=== PATIENT | female | born 1935 | race Two or more races ===

== ENCOUNTER 2018-03-12 12:56 | Outpatient (CLI) | payer OTHER ==
[~2018-03-12 12:56] MED LIST: ACETAZOLAMIDE250 MG; ALDACTONE25 MG; ALDACTONE25 MG PO; Atacand PO; CANDESARTAN CILE8 MG; CATAFLAM50 MG PO; CORTISPORIN EAR10 M1 OT; DILTIAZEM ER120 M1 PO; LANOXIN125 MCG PO; LASIX20 MG; MEDROLPACK PO; OMNIPRED10 ML; ORPH100T PO; ROBITUSSIN COU118 M9; TESSALON PERLE100 M1 PO; TOPROL XL25 M1; TOPROL XL50 M1 PO; XARELTO15 MG; XARELTO15 MG PO; XOPENEX0.63 MG/3 IH
== END 2018-03-12 13:04 | disposition home or self-care (01) ==
LOC: RAD 12:56
DX: M54.5 Low back pain (principal); M54.10 Radiculopathy, site unspecified

== ENCOUNTER 2018-09-18 08:47 | Outpatient (CLI) | payer OTHER | END 2018-09-18 08:55 | disposition home or self-care (01) | LOC: MAMO-SONO 08:47 | DX: Z12.31 Encounter for screening mammogram for malignant neoplasm of breast (principal); Z87.898 Personal history of other specified conditions; N60.11 Diffuse cystic mastopathy of right breast; N60.12 Diffuse cystic mastopathy of left breast; J43.8 Other emphysema ==

== ENCOUNTER 2018-12-17 14:20 | Outpatient (CLI) | payer OTHER | END 2018-12-17 14:29 | disposition home or self-care (01) | LOC: RAD 14:20 | DX: R05 Cough (principal) ==

== ENCOUNTER 2019-04-29 08:03 | Outpatient (CLI) | payer OTHER | END 2019-04-29 08:12 | disposition home or self-care (01) | LOC: RAD 08:03 | DX: J44.9 Chronic obstructive pulmonary disease, unspecified (principal) ==

== ENCOUNTER → 2019-05-27 | Outpatient (CLI) | payer OTHER | END | disposition home or self-care (01) | LOC: RAD 10:43 | DX: H25.011 Cortical age-related cataract, right eye (principal); Z98.41 Cataract extraction status, right eye ==

== ENCOUNTER → 2020-05-01 | Emergency (ER) | payer OTHER ==
[~2020-05-01] VITALS: Ht 167.6 cm; Wt 61.2 kg
== END | disposition left against medical advice (07) ==
LOC: ER 17:52
DX: K21.9 Gastro-esophageal reflux disease without esophagitis (principal); R10.11 Right upper quadrant pain

== ENCOUNTER 2020-05-05 09:26 | Outpatient (CLI) | payer OTHER | END 2020-05-05 15:00 | disposition home or self-care (01) | LOC: EKG 09:26 | PROVIDERS: ATTEND Ophthalmology | DX: Z01.810 Encounter for preprocedural cardiovascular examination (principal); H25.89 Other age-related cataract; D68.8 Other specified coagulation defects ==

== ENCOUNTER 2020-06-08 15:37 | Outpatient (CLI) | payer OTHER | END 2020-06-08 15:56 | disposition home or self-care (01) | LOC: RAD 15:37 | PROVIDERS: ATTEND Specialist | DX: R05 Cough (principal); J84.10 Pulmonary fibrosis, unspecified ==

== ENCOUNTER 2020-08-04 10:11 | Outpatient (CLI) | payer OTHER | END 2020-08-04 10:31 | disposition home or self-care (01) | LOC: RAD 10:11 → TOM 10:11 | PROVIDERS: ATTEND Internal Medicine Hematology & Oncology | DX: J43.8 Other emphysema (principal); R63.4 Abnormal weight loss; J84.10 Pulmonary fibrosis, unspecified ==

== ENCOUNTER 2020-10-27 13:47 | Outpatient (CLI) | payer OTHER | END 2020-10-27 13:55 | disposition home or self-care (01) | LOC: RAD 13:47 | PROVIDERS: ATTEND Ophthalmology | DX: I10 Essential (primary) hypertension (principal); I15.8 Other secondary hypertension ==